=== PATIENT | male | born 1970 | race Two or more races ===

== ENCOUNTER 2018-10-16 18:43 | Inpatient (IN) | payer OTHER ==
[2018-10-16 19:22] VITALS: BMI 24.3
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
[2018-10-16] MEDS ORDERED: ONDANSETRON *ODT* 4 MG TABLET SL PRN (20:56)
[2018-10-16] MEDS ORDERED: DICYCLOMINE HCL 10 MG CAPSULE PO PRN (20:56)
[2018-10-16] MEDS ORDERED: MAGNESIUM HYDROX 2400MG/30ML ORAL SUSPENSION 30 ML CUP PO PRN (20:56)
[2018-10-16] MEDS ORDERED: MAGNESIUM CITRATE 300 ML BOTTLE PO PRN (20:56)
[2018-10-16] MEDS ORDERED: P-EPHED 60MG/TRIPROLIDI 2.5MG TABLET PO PRN (20:56)
[2018-10-16] MEDS ORDERED: chlordiazePOXIDE HCL 10 MG CAPSULE PO PRN (20:56)
[2018-10-16] MEDS ORDERED: MAG HYDROX/AL HYDROX/SIMETH 30 ML UNIT-DOSE CUP PO PRN (20:56)
[2018-10-16] MEDS ORDERED: MELATONIN 5 MG TABLETS PO PRN (20:56)
[2018-10-16] MEDS ORDERED: MENTHOL/PHENOL 1 EACH UD MM PRN (20:56)
[2018-10-16] MEDS ORDERED: NICOTINE POLACRILEX 4 MG GUM BUC PRN (20:56)
[2018-10-16] MEDS ORDERED: guaiFENesin 200 MG/10 ML 10 ML UNIT-DOSE CUPS PO PRN (20:56)
[2018-10-16] MEDS ORDERED: METHOCARBAMOL 500 MG TABLET PO PRN (20:56)
[2018-10-16] MEDS ORDERED: IBUPROFEN 400 MG TABLET (FP) PO PRN (20:56)
[2018-10-16] MEDS ORDERED: BISMUTH SUBSALICYLATE 524 MG/30 ML UD PO PRN (20:56)
[2018-10-16] MEDS ORDERED: ACETAMINOPHEN 325 MG TABLET (FP) PO PRN ×2 (20:56)
[2018-10-16] MEDS: hydrOXYzine PAMOATE 25 MG CAPSULE (FP) PO PRN (22:26)
[2018-10-16] MEDS: chlordiazePOXIDE HCL 25 MG CAPSULE PO SCH (22:26)
[2018-10-16] MEDS: THIAMINE HCL 100 MG TABLET (FP) PO SCH (22:54)
[2018-10-17] MEDS: chlordiazePOXIDE HCL 25 MG CAPSULE PO SCH ×2 (06:19→14:15)
[2018-10-17 10:01] LABS: ALBUMIN 3.2 g/dl (3.4-5.0); ALK PHOS 93 U/L (45-117); ANION GAP 9 MMOL/L (8-16); BILIRUBIN,TOTAL 0.3 mg/dL (0.2-1); BLOOD UREA NITROGEN 15 mg/dL (7-18); CALCIUM 8.5 mg/dL (8.5-10.1); CHLORIDE 104 mmol/L (98-107); CO2 27 mmol/L (21-32); GLUCOSE,RANDOM 111 mg/dL (74-106); POTASSIUM 3.5 mmol/L (3.5-5.1); SGOT/AST 16 U/L (15-37); SGPT/ALT 19 U/L (13-61); SODIUM 140 mmol/L (136-145); TOT PROT 6.6 g/dl (6.4-8.2)
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
[2018-10-17] MEDS: PRENATAL VITAMINS W/ FOLIC ACID TABLET (FP) PO SCH (10:29)
[2018-10-17] MEDS: NICOTINE 21 MG/24 HOURS TOPICAL PATCH TD SCH (10:30)
[2018-10-17 11:26] LABS: HEMATOCRIT 42.2 % (35.4-49); HEMOGLOBIN 14.1 GM/dL (11.7-16.9); MCH 31.6 pg (25.7-33.7); MCHC 33.3 g/dl (32.0-35.9); MEAN CELL VOLUME 94.8 fl (80-96); PLATELET COUNT 181 K/MM3 (134-434); RBC 4.46 M/mm3 (4.00-5.60); WHITE BLOOD COUNT 7.8 K/mm3 (4.0-10.0)
--- NOTE | 2018-10-17 12:29 | PN ---
S Progress Note Note: Patient is very uncooperative with the interview at this time. He answered "I don't know" for every question asked of him. Reconsult when patient is more cooperative
[2018-10-17 13:04] LABS: RPR REACTIVE 1:2 (NONREACTIVE)
--- NOTE | 2018-10-17 14:19 | PN ---
[facility] CIWA - CIWA Score Nausea/Vomitin-Mild Nausea/No Vomiting Muscle Tremors: 4-Moderate,w/Arms Extend Anxiety: 4-Mod. Anxious/Guarded Agitation: 4-Moderately Restless Paroxysmal Sweats: 3 Orientation: 0-Oriented Tacttile Disturbances: 0-None Auditory Disturbances: 0-None Visual Disturbances: 0-None Headache: 0-None Present CIWA-Ar Total Score: 16 [facility] Progress Note (SOAP) Subjective: Chills Objective: 10/17/18 14:17 Last Vital Signs Temp Pulse Resp BP Pulse Ox 97.9 F 80 18 125/75 10/17/18 09:19 10/17/18 09:19 10/17/18 09:19 10/17/18 09:19 Laboratory Tests 10/17/18 10/17/18 10/17/18 07:50 07:50 07:50 WBC 7.8 RBC 4.46 Hgb 14.1 Hct 42.2 MCV 94.8 MCH 31.6 MCHC 33.3 RDW 15.0 Plt Count 181 MPV 9.0 Sodium 140 Potassium 3.5 Chloride 104 Carbon Dioxide 27 Anion Gap 9 BUN 15 Creatinine 1.0 Creat Clearance w eGFR 80.44 Random Glucose 111 H Calcium 8.5 Total Bilirubin 0.3 AST 16 ALT 19 Alkaline Phosphatase 93 Total Protein 6.6 Albumin 3.2 L Valproic Acid RPR Titer Reactive 1:2 H 10/17/18 07:50 WBC RBC Hgb Hct MCV MCH MCHC RDW Plt Count MPV Sodium Potassium Chloride Carbon Dioxide Anion Gap BUN Creatinine Creat Clearance w eGFR Random Glucose Calcium Total Bilirubin AST ALT Alkaline Phosphatase Total Protein Albumin Valproic Acid < 3.0 L RPR Titer Labs reviewed: RPR 1:2; TPPA pending result Assessment: 10/17/18 14:18 Withdrawal symptoms Plan: Continue detox Encouraged PO water hydration RPR titer positive: follow up on TPPA result
[2018-10-17 14:44] LABS: TREPONEMA ANTIBODY REACTIVE (NONREACTIVE)
--- NOTE | 2018-10-17 18:04 | EKG ---
Test Reason : Blood Pressure : / mmHG Vent. Rate : 067 BPM Atrial Rate : 067 BPM P-R Int : 140 ms QRS Dur : 100 ms QT Int : 392 ms P-R-T Axes : 054 076 058 degrees QTc Int : 414 ms NORMAL SINUS RHYTHM VOLTAGE CRITERIA FOR LEFT VENTRICULAR HYPERTROPHY ABNORMAL ECG NO PREVIOUS ECGS AVAILABLE Confirmed by LUKE BECK MD ([id number]) on 10/17/2018 6:04:41 PM Referred By: Confirmed By:LUKE BECK MD
[2018-10-17] MEDS: hydrOXYzine PAMOATE 25 MG CAPSULE (FP) PO PRN (23:11)
[2018-10-17] MEDS: chlordiazePOXIDE 5 MG CAPSULE PO SCH (23:11)
[2018-10-17] MEDS: THIAMINE HCL 100 MG TABLET (FP) PO SCH (23:11)
[2018-10-18] MEDS: chlordiazePOXIDE 5 MG CAPSULE PO SCH ×3 (05:46→14:17)
[2018-10-18 10:12] LABS: URINE APPEARANCE CLEAR; URINE BILIRUBIN NEGATIVE (NEGATIVE); URINE COLOR YELLOW; URINE GLUCOSE (UA) NEGATIVE (NEGATIVE); URINE KETONE TRACE (NEGATIVE); URINE LEUK ESTERASE NEGATIVE (NEGATIVE); URINE NITRITE NEGATIVE (NEGATIVE); URINE PROTEIN NEGATIVE (NEGATIVE); URINE UROBILINOGEN 0.2 mg/dL (0.2-1.0)
[2018-10-18] MEDS: PRENATAL VITAMINS W/ FOLIC ACID TABLET (FP) PO SCH (10:19)
[2018-10-18] MEDS: NICOTINE 21 MG/24 HOURS TOPICAL PATCH TD SCH (10:19)
--- NOTE | 2018-10-18 14:26 | PN ---
[facility] CIWA - CIWA Score Nausea/Vomitin-No Nausea/No Vomiting Muscle Tremors: 2 Anxiety: 3 Agitation: 0-Normal Activity Paroxysmal Sweats: No Perspiration Orientation: 2-Disoriented Date<2 days Tacttile Disturbances: 2-Mild Itch/Numbness/Burn Auditory Disturbances: 0-None Visual Disturbances: 2-Mild Sensitivity Headache: 0-None Present CIWA-Ar Total Score: 11 S Progress Note (SOAP) Subjective: Body Aches, Anxious, Chills. Objective: PATIENT A & O X 2 (UNCERTAIN ABOUT CURRENT DAY / DATE). PATIENT OBSERVED AMBULATING ON UNIT. IN NO ACUTE DISTRESS. 10/18/18 14:26 Vital Signs Temperature 97.9 F 10/18/18 13:40 Pulse Rate 77 10/18/18 13:40 Respiratory Rate 18 10/18/18 13:40 Blood Pressure 126/66 10/18/18 13:40 O2 Sat by Pulse Oximetry (%) Laboratory Tests 10/17/18 10/17/18 10/17/18 07:50 07:50 07:50 WBC 7.8 RBC 4.46 Hgb 14.1 Hct 42.2 MCV 94.8 MCH 31.6 MCHC 33.3 RDW 15.0 Plt Count 181 MPV 9.0 Sodium 140 Potassium 3.5 Chloride 104 Carbon Dioxide 27 Anion Gap 9 BUN 15 Creatinine 1.0 Creat Clearance w eGFR 80.44 Random Glucose 111 H Calcium 8.5 Total Bilirubin 0.3 AST 16 ALT 19 Alkaline Phosphatase 93 Total Protein 6.6 Albumin 3.2 L Urine Color Urine Appearance Urine pH Ur Specific [place] Urine Protein Urine Glucose (UA) Urine Ketones Urine Blood Urine Nitrite Urine Bilirubin Urine Urobilinogen Ur Leukocyte Esterase Valproic Acid RPR Titer Reactive 1:2 H T.pallidum Ab (MHA) Reactive 10/17/18 10/18/18 07:50 07:50 WBC RBC Hgb Hct MCV MCH MCHC RDW Plt Count MPV Sodium Potassium Chloride Carbon Dioxide Anion Gap BUN Creatinine Creat Clearance w eGFR Random Glucose Calcium Total Bilirubin AST ALT Alkaline Phosphatase Total Protein Albumin Urine Color Yellow Urine Appearance Clear Urine pH 5.0 Ur Specific [place] 1.030 Urine Protein Negative Urine Glucose (UA) Negative Urine Ketones Trace H Urine Blood Negative Urine Nitrite Negative Urine Bilirubin Negative Urine Urobilinogen 0.2 Ur Leukocyte Esterase Negative Valproic Acid < 3.0 L RPR Titer T.pallidum Ab (MHA) LABS NOTED. RPR REACTIVE 1:2; MHATP: REACTIVE. PATIENT REPORTS THAT HE COMPLETED A FULL COURSE OF ANTIBIOTIC TREATMENT FOR SYPHILIS IN THE PAST. 10/18/18 15:47 Assessment: 10/18/18 14:26 WITHDRAWAL SYMPTOMS. 10/18/18 15:47 Plan: CONTINUE DETOX.
[2018-10-18] MEDS ORDERED: chlordiazePOXIDE HCL 10 MG CAPSULE PO PRN (21:00)
[2018-10-18] MEDS: THIAMINE HCL 100 MG TABLET (FP) PO SCH (22:08)
[2018-10-18] MEDS: chlordiazePOXIDE HCL 10 MG CAPSULE PO SCH (22:08)
[2018-10-19] MEDS: chlordiazePOXIDE HCL 10 MG CAPSULE PO SCH (07:00)
[2018-10-19 07:38] VITALS: TEMP 97.5
[2018-10-19 09:33] VITALS: BP 108/70; PULSE 74
--- NOTE | 2018-10-19 09:59 | PN ---
S Progress Note (SOAP) Subjective: alert,irritable,interrupted sleep Objective: 10/19/18 09:58 Vital Signs Temperature 97.5 F L 10/19/18 09:33 Pulse Rate 74 10/19/18 09:33 Respiratory Rate 18 10/19/18 09:33 Blood Pressure 108/70 10/19/18 09:33 O2 Sat by Pulse Oximetry (%) Assessment: 10/19/18 09:58 withdrawal symptom Plan: continue detox,discharge in am
[2018-10-19] MEDS: PRENATAL VITAMINS W/ FOLIC ACID TABLET (FP) PO SCH (10:09)
[2018-10-19] MEDS: NICOTINE 21 MG/24 HOURS TOPICAL PATCH TD SCH (10:09)
--- NOTE | 2018-10-19 10:21 | PN ---
S Progress Note Note: alert,no complaint at this time Vital Signs Temperature 97.5 F L 10/19/18 09:33 Pulse Rate 74 10/19/18 09:33 Respiratory Rate 18 10/19/18 09:33 Blood Pressure 108/70 10/19/18 09:33 O2 Sat by Pulse Oximetry (%) stable for discharge today follow up with [facility] arrangement
--- NOTE | 2018-10-19 10:24 | DS ---
[facility] Detox Discharge Summary Admission Date: 10/16/18 Discharge Date: 10/19/18 - History Present History: Alcohol Dependence, Cocaine Dependence Additional Comments: stable to be discharged today,to [facility] as arrangement Pertinent Past History: nicotine dependence - Physical Exam Results Vital Signs: Vital Signs Temperature 97.5 F L 10/19/18 09:33 Pulse Rate 74 10/19/18 09:33 Respiratory Rate 18 10/19/18 09:33 Blood Pressure 108/70 10/19/18 09:33 O2 Sat by Pulse Oximetry (%) Pertinent Admission Physical Exam Findings: withdrawal symptom - Treatment Hospital Course: Detox Protocol Followed, Detoxed Safely, Responded well, Discharged Condition Good, Rehab Referral Accepted Patient has Accepted a Rehab Referral to: [facility] - Medication Discharge Medications: Ambulatory Orders Divalproex [Depakote -] 500 mg PO DAILY 10/16/18 Olanzapine [Zyprexa] 10 mg PO DAILY 10/16/18 - Diagnosis (1) Alcohol dependence with uncomplicated withdrawal Current Visit: Yes Status: Acute (2) Cocaine abuse, uncomplicated Current Visit: Yes Status: Acute (3) Nicotine dependence Current Visit: Yes Status: Acute Qualifiers: Nicotine product type: cigarettes Substance use status: uncomplicated Qualified Code(s): F17.210 - Nicotine dependence, cigarettes, uncomplicated (4) Depression Current Visit: Yes Status: Acute - AMA Did Patient Leave Against Medical Advice: No
== END 2018-10-19 12:28 | disposition other institution (70) | DRG 774 ==
LOC: YASAS 18:43 → Y6N 20:23
PROVIDERS: ADMIT Surgery; ATTEND Surgery
PROC: HZ2ZZZZ Detoxification Services for Substance Abuse Treatment (ICD-10-PCS; principal; 2018-10-16)
DX: F10.230 Alcohol dependence with withdrawal, uncomplicated (principal); F14.20 Cocaine dependence, uncomplicated; F17.210 Nicotine dependence, cigarettes, uncomplicated; F19.24 Other psychoactive substance dependence with psychoactive substance-induced mood disorder; F31.9 Bipolar disorder, unspecified; F20.9 Schizophrenia, unspecified; R45.89 Other symptoms and signs involving emotional state; Z91.19 Patient's noncompliance with other medical treatment and regimen; Z91.5 Personal history of self-harm; Z86.19 Personal history of other infectious and parasitic diseases; Z59.0 Homelessness; R68.89 Other general symptoms and signs
CPT/HCPCS: 36415; 80053; 80164; 81003; 85027; 86593; 86780; 93005; 93010

== ENCOUNTER 2018-10-19 12:40 | Inpatient (IN) | payer OTHER ==
[2018-10-19] MEDS ORDERED: NICOTINE POLACRILEX 2 MG GUM BUC PRN (14:19)
[2018-10-19] MEDS ORDERED: MENTHOL/PHENOL 1 EACH UD MM PRN (14:19)
[2018-10-19] MEDS ORDERED: guaiFENesin 200 MG/10 ML 10 ML UNIT-DOSE CUPS PO PRN (14:19)
[2018-10-19] MEDS ORDERED: MAG HYDROX/AL HYDROX/SIMETH 30 ML UNIT-DOSE CUP PO PRN (14:19)
[2018-10-19] MEDS ORDERED: MAGNESIUM CITRATE 300 ML BOTTLE PO PRN (14:19)
[2018-10-19] MEDS ORDERED: hydrOXYzine PAMOATE 50 MG CAPSULE (FP) PO PRN (14:19)
[2018-10-19] MEDS ORDERED: ACETAMINOPHEN 325 MG TABLET (FP) PO PRN (14:19)
[2018-10-19] MEDS ORDERED: MAGNESIUM HYDROX 2400MG/30ML ORAL SUSPENSION 30 ML CUP PO PRN (14:19)
[2018-10-19] MEDS ORDERED: IBUPROFEN 400 MG TABLET (FP) PO PRN (14:19)
[2018-10-19] MEDS ORDERED: P-EPHED 60MG/TRIPROLIDI 2.5MG TABLET PO PRN (14:19)
[2018-10-19] MEDS ORDERED: LOPERAMIDE HCL 2 MG CAPSULE PO PRN (14:19)
--- NOTE | 2018-10-19 14:19 | HP ---
[facility] Rehab Assess/Revision - Admission History Admitted to Rehab from: [facility] Date of Admission to Rehab: 10/19/18 - Findings Detox History & Physical reviewed: Yes Concur with findings: Yes Comments/Additional Findings: for rehab as protocol Inpatient Rehab Admission - Rehab Decision to Admit Inpatient rehab admission?: Yes - Initial Determination Are CD services needed?: Yes Free of communicable disease: Yes Not in need of hospitalization: Yes - Rehab Admission Criteria Previous failed treatment: Yes Poor recovery environment: Yes Comorbidities: Yes Lacks judgement: No Patient is meeting Inpatient Rehab admission criteria:: Yes
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
[2018-10-19] MEDS: DIVALPROEX SODIUM 250 MG TABLET E.C. PO SCH (21:35)
[2018-10-19] MEDS: THIAMINE HCL 100 MG TABLET (FP) PO SCH (21:35)
[2018-10-19] MEDS: OLANZapine 5 MG TABLET PO SCH (21:36)
[2018-10-19] MEDS ORDERED: MELATONIN 5 MG TABLETS PO PRN (22:00)
[2018-10-20] MEDS: NICOTINE 21 MG/24 HOURS TOPICAL PATCH TD SCH (09:41)
[2018-10-20] MEDS: PRENATAL VITAMINS W/ FOLIC ACID TABLET (FP) PO SCH (09:41)
[2018-10-20] MEDS: DIVALPROEX SODIUM 250 MG TABLET E.C. PO SCH ×2 (09:41→21:40)
--- NOTE | 2018-10-20 09:43 | PN ---
S Progress Note Note: PT WAS ADMITTED HERE YESTERDAY FROM [address] [place] [address] BUT PREFERS TO CONTINUE REHAB ON [facility] PER NURSE [place]. PT WILL BE TRANSFERRED TO [facility] PER REQUEST. Vital Signs - 24 hr 10/19/18 10/20/18 10/20/18 14:27 00:30 03:30 Temperature 97.6 F Pulse Rate 81 Respiratory 18 18 18 Rate Blood Pressure 130/73 10/20/18 06:55 Temperature 97.4 F L Pulse Rate 66 Respiratory 18 Rate Blood Pressure 122/73 NAD TRANSFER TO [facility] TO CONTINUE REHAB.
[2018-10-20] MEDS: OLANZapine 5 MG TABLET PO SCH (21:40)
[2018-10-20] MEDS: THIAMINE HCL 100 MG TABLET (FP) PO SCH (21:40)
[2018-10-21] MEDS: PRENATAL VITAMINS W/ FOLIC ACID TABLET (FP) PO SCH (11:48)
[2018-10-21] MEDS: DIVALPROEX SODIUM 250 MG TABLET E.C. PO SCH ×2 (11:48→21:40)
[2018-10-21] MEDS: NICOTINE 21 MG/24 HOURS TOPICAL PATCH TD SCH (11:48)
[2018-10-21] MEDS: OLANZapine 5 MG TABLET PO SCH (21:40)
[2018-10-21] MEDS: THIAMINE HCL 100 MG TABLET (FP) PO SCH (21:40)
[2018-10-22] MEDS: NICOTINE 21 MG/24 HOURS TOPICAL PATCH TD SCH (10:20)
[2018-10-22] MEDS: PRENATAL VITAMINS W/ FOLIC ACID TABLET (FP) PO SCH (10:21)
[2018-10-22] MEDS: DIVALPROEX SODIUM 250 MG TABLET E.C. PO SCH ×2 (10:21→21:15)
[2018-10-22] MEDS: THIAMINE HCL 100 MG TABLET (FP) PO SCH (21:15)
[2018-10-22] MEDS: OLANZapine 5 MG TABLET PO SCH (21:15)
[2018-10-23] MEDS: NICOTINE 21 MG/24 HOURS TOPICAL PATCH TD SCH (10:14)
[2018-10-23] MEDS: PRENATAL VITAMINS W/ FOLIC ACID TABLET (FP) PO SCH (10:14)
[2018-10-23] MEDS: DIVALPROEX SODIUM 250 MG TABLET E.C. PO SCH ×2 (10:14→21:28)
[2018-10-23] MEDS: OLANZapine 5 MG TABLET PO SCH (21:28)
[2018-10-23] MEDS: THIAMINE HCL 100 MG TABLET (FP) PO SCH (21:28)
[2018-10-24] MEDS: NICOTINE 21 MG/24 HOURS TOPICAL PATCH TD SCH (10:10)
[2018-10-24] MEDS: DIVALPROEX SODIUM 250 MG TABLET E.C. PO SCH ×2 (10:10→21:15)
[2018-10-24] MEDS: PRENATAL VITAMINS W/ FOLIC ACID TABLET (FP) PO SCH (10:10)
[2018-10-24] MEDS: OLANZapine 5 MG TABLET PO SCH (21:15)
[2018-10-24] MEDS: THIAMINE HCL 100 MG TABLET (FP) PO SCH (21:15)
[2018-10-25] MEDS: DIVALPROEX SODIUM 250 MG TABLET E.C. PO SCH ×2 (09:55→21:56)
[2018-10-25] MEDS: PRENATAL VITAMINS W/ FOLIC ACID TABLET (FP) PO SCH (09:55)
[2018-10-25] MEDS: NICOTINE 21 MG/24 HOURS TOPICAL PATCH TD SCH (09:55)
[2018-10-25] MEDS: OLANZapine 5 MG TABLET PO SCH (21:56)
[2018-10-25] MEDS: THIAMINE HCL 100 MG TABLET (FP) PO SCH (21:56)
[2018-10-26] MEDS: NICOTINE 21 MG/24 HOURS TOPICAL PATCH TD SCH (10:08)
[2018-10-26] MEDS: DIVALPROEX SODIUM 250 MG TABLET E.C. PO SCH ×2 (10:08→21:39)
[2018-10-26] MEDS: PRENATAL VITAMINS W/ FOLIC ACID TABLET (FP) PO SCH (10:08)
[2018-10-26] MEDS: OLANZapine 5 MG TABLET PO SCH (21:39)
[2018-10-26] MEDS: THIAMINE HCL 100 MG TABLET (FP) PO SCH (21:39)
[2018-10-27] MEDS: PRENATAL VITAMINS W/ FOLIC ACID TABLET (FP) PO SCH (09:41)
[2018-10-27] MEDS: DIVALPROEX SODIUM 250 MG TABLET E.C. PO SCH ×2 (09:41→21:35)
[2018-10-27] MEDS: NICOTINE 21 MG/24 HOURS TOPICAL PATCH TD SCH (09:41)
[2018-10-27] MEDS: THIAMINE HCL 100 MG TABLET (FP) PO SCH (21:35)
[2018-10-27] MEDS: OLANZapine 5 MG TABLET PO SCH (21:35)
[2018-10-28] MEDS: PRENATAL VITAMINS W/ FOLIC ACID TABLET (FP) PO SCH (09:50)
[2018-10-28] MEDS: NICOTINE 21 MG/24 HOURS TOPICAL PATCH TD SCH (09:50)
[2018-10-28] MEDS: DIVALPROEX SODIUM 250 MG TABLET E.C. PO SCH ×2 (09:50→21:23)
[2018-10-28] MEDS: THIAMINE HCL 100 MG TABLET (FP) PO SCH (21:23)
[2018-10-28] MEDS: OLANZapine 5 MG TABLET PO SCH (21:23)
[2018-10-29] MEDS: DIVALPROEX SODIUM 250 MG TABLET E.C. PO SCH ×2 (10:13→21:46)
[2018-10-29] MEDS: NICOTINE 21 MG/24 HOURS TOPICAL PATCH TD SCH (10:13)
[2018-10-29] MEDS: PRENATAL VITAMINS W/ FOLIC ACID TABLET (FP) PO SCH (10:13)
[2018-10-29] MEDS: THIAMINE HCL 100 MG TABLET (FP) PO SCH (21:45)
[2018-10-29] MEDS: OLANZapine 5 MG TABLET PO SCH (21:46)
[2018-10-30] MEDS: DIVALPROEX SODIUM 250 MG TABLET E.C. PO SCH ×2 (09:38→21:24)
[2018-10-30] MEDS: PRENATAL VITAMINS W/ FOLIC ACID TABLET (FP) PO SCH (09:38)
[2018-10-30] MEDS: NICOTINE 21 MG/24 HOURS TOPICAL PATCH TD SCH (09:38)
[2018-10-30] MEDS: OLANZapine 5 MG TABLET PO SCH (21:24)
[2018-10-30] MEDS: THIAMINE HCL 100 MG TABLET (FP) PO SCH (21:24)
[2018-10-31] MEDS: DIVALPROEX SODIUM 250 MG TABLET E.C. PO SCH ×2 (10:07→21:31)
[2018-10-31] MEDS: NICOTINE 21 MG/24 HOURS TOPICAL PATCH TD SCH (10:07)
[2018-10-31] MEDS: PRENATAL VITAMINS W/ FOLIC ACID TABLET (FP) PO SCH (10:07)
[2018-10-31] MEDS: THIAMINE HCL 100 MG TABLET (FP) PO SCH (21:31)
[2018-10-31] MEDS: OLANZapine 5 MG TABLET PO SCH (21:31)
[2018-11-01] MEDS: NICOTINE 21 MG/24 HOURS TOPICAL PATCH TD SCH (10:35)
[2018-11-01] MEDS: DIVALPROEX SODIUM 250 MG TABLET E.C. PO SCH ×2 (10:35→21:25)
[2018-11-01] MEDS: PRENATAL VITAMINS W/ FOLIC ACID TABLET (FP) PO SCH (10:35)
[2018-11-01] MEDS: THIAMINE HCL 100 MG TABLET (FP) PO SCH (21:25)
[2018-11-01] MEDS: OLANZapine 5 MG TABLET PO SCH (21:25)
[2018-11-02] MEDS: PRENATAL VITAMINS W/ FOLIC ACID TABLET (FP) PO SCH (10:03)
[2018-11-02] MEDS: DIVALPROEX SODIUM 250 MG TABLET E.C. PO SCH ×2 (10:03→21:17)
[2018-11-02] MEDS: NICOTINE 21 MG/24 HOURS TOPICAL PATCH TD SCH (10:03)
[2018-11-02] MEDS: THIAMINE HCL 100 MG TABLET (FP) PO SCH (21:17)
[2018-11-02] MEDS: OLANZapine 5 MG TABLET PO SCH (21:17)
[2018-11-03] MEDS: DIVALPROEX SODIUM 250 MG TABLET E.C. PO SCH ×2 (09:58→21:30)
[2018-11-03] MEDS: NICOTINE 21 MG/24 HOURS TOPICAL PATCH TD SCH (09:58)
[2018-11-03] MEDS: PRENATAL VITAMINS W/ FOLIC ACID TABLET (FP) PO SCH (09:58)
[2018-11-03] MEDS: OLANZapine 5 MG TABLET PO SCH (21:30)
[2018-11-03] MEDS: THIAMINE HCL 100 MG TABLET (FP) PO SCH (21:30)
[2018-11-04] MEDS: DIVALPROEX SODIUM 250 MG TABLET E.C. PO SCH ×2 (10:14→21:17)
[2018-11-04] MEDS: PRENATAL VITAMINS W/ FOLIC ACID TABLET (FP) PO SCH (10:14)
[2018-11-04] MEDS: NICOTINE 21 MG/24 HOURS TOPICAL PATCH TD SCH (10:14)
[2018-11-04] MEDS: THIAMINE HCL 100 MG TABLET (FP) PO SCH (21:16)
[2018-11-04] MEDS: OLANZapine 5 MG TABLET PO SCH (21:16)
[2018-11-05] MEDS: DIVALPROEX SODIUM 250 MG TABLET E.C. PO SCH ×2 (09:50→21:35)
[2018-11-05] MEDS: PRENATAL VITAMINS W/ FOLIC ACID TABLET (FP) PO SCH (09:50)
[2018-11-05] MEDS: NICOTINE 21 MG/24 HOURS TOPICAL PATCH TD SCH (09:50)
[2018-11-05] MEDS: THIAMINE HCL 100 MG TABLET (FP) PO SCH (21:35)
[2018-11-05] MEDS: OLANZapine 5 MG TABLET PO SCH (21:35)
[2018-11-06] MEDS: PRENATAL VITAMINS W/ FOLIC ACID TABLET (FP) PO SCH (10:57)
[2018-11-06] MEDS: DIVALPROEX SODIUM 250 MG TABLET E.C. PO SCH ×2 (10:57→21:30)
[2018-11-06] MEDS: NICOTINE 21 MG/24 HOURS TOPICAL PATCH TD SCH (10:57)
[2018-11-06] MEDS: OLANZapine 5 MG TABLET PO SCH (21:30)
[2018-11-06] MEDS: THIAMINE HCL 100 MG TABLET (FP) PO SCH (21:30)
[2018-11-07] MEDS: DIVALPROEX SODIUM 250 MG TABLET E.C. PO SCH ×2 (10:22→21:30)
[2018-11-07] MEDS: PRENATAL VITAMINS W/ FOLIC ACID TABLET (FP) PO SCH (10:22)
[2018-11-07] MEDS: NICOTINE 21 MG/24 HOURS TOPICAL PATCH TD SCH (10:22)
[2018-11-07] MEDS: THIAMINE HCL 100 MG TABLET (FP) PO SCH (21:30)
[2018-11-07] MEDS: OLANZapine 5 MG TABLET PO SCH (21:30)
[2018-11-08] MEDS: NICOTINE 21 MG/24 HOURS TOPICAL PATCH TD SCH (09:51)
[2018-11-08] MEDS: PRENATAL VITAMINS W/ FOLIC ACID TABLET (FP) PO SCH (09:51)
[2018-11-08] MEDS: DIVALPROEX SODIUM 250 MG TABLET E.C. PO SCH ×2 (09:51→21:28)
[2018-11-08] MEDS: OLANZapine 5 MG TABLET PO SCH (21:28)
[2018-11-08] MEDS: THIAMINE HCL 100 MG TABLET (FP) PO SCH (21:28)
[2018-11-09] MEDS: DIVALPROEX SODIUM 250 MG TABLET E.C. PO SCH ×2 (09:57→21:39)
[2018-11-09] MEDS: PRENATAL VITAMINS W/ FOLIC ACID TABLET (FP) PO SCH (09:57)
[2018-11-09] MEDS: NICOTINE 21 MG/24 HOURS TOPICAL PATCH TD SCH (09:58)
--- NOTE | 2018-11-09 13:52 | PN ---
[facility] Progress Note (SOAP) Subjective: Client to be discharged tomorrow. Objective: No neurological deficits, CN2-12; Heart rates regular, Lungs clear. Abdomen soft , non-tender, non-distended. Medically stable. Vital Signs Period Temp Pulse Resp BP Sys/Real Pulse Ox Last 24 Hr 97.5 F 68 18-18 130/71 11/09/18 13:50 Assessment: Medically stable for discharge. Discharge dx: ETOH abuse, chronic Cocaine abuse, chronic PCP dependence, chronic HTN Homeless 11/09/18 13:53 Plan: Aftercare and medical care at [facility]. Client does not have any prescriptions that need to be transmitted.
--- NOTE | 2018-11-09 15:17 | PN ---
[facility] Progress Note Note: Patient is scheduled for discharged tomorrow. Scripts for 30 days supply of medications(Zyprexa 5 mg/hs, Depakote 250 mg/bid) will be electronically transmitted to [facility] at [address] [place] [address]
[2018-11-09] MEDS: THIAMINE HCL 100 MG TABLET (FP) PO SCH (21:39)
[2018-11-09] MEDS: OLANZapine 5 MG TABLET PO SCH (21:39)
[2018-11-10 07:00] VITALS: BP 118/79; PULSE 70; TEMP 97.7
[2018-11-10] MEDS: NICOTINE 21 MG/24 HOURS TOPICAL PATCH TD SCH (09:04)
[2018-11-10] MEDS: DIVALPROEX SODIUM 250 MG TABLET E.C. PO SCH (09:04)
[2018-11-10] MEDS: PRENATAL VITAMINS W/ FOLIC ACID TABLET (FP) PO SCH (09:04)
== END 2018-11-10 09:10 | disposition home or self-care (01) | DRG 772 ==
LOC: YASAS 12:40 → Y5N 12:41 → Y3W 10-20 10:40
PROVIDERS: ADMIT Neuromusculoskeletal Medicine & OMM; ATTEND Neuromusculoskeletal Medicine & OMM
PROC: HZ42ZZZ Group Counseling for Substance Abuse Treatment, Cognitive-Behavioral (ICD-10-PCS; principal; 2018-10-19)
DX: F10.20 Alcohol dependence, uncomplicated (principal); F14.10 Cocaine abuse, uncomplicated; F16.20 Hallucinogen dependence, uncomplicated; F17.210 Nicotine dependence, cigarettes, uncomplicated; F31.9 Bipolar disorder, unspecified; F19.24 Other psychoactive substance dependence with psychoactive substance-induced mood disorder; I10 Essential (primary) hypertension; Z91.19 Patient's noncompliance with other medical treatment and regimen; Z59.0 Homelessness
CPT/HCPCS: 36415; 71046-TC-FY; 80164

== ENCOUNTER 2023-03-19 16:34 | Inpatient (IN) | payer OTHER ==
[2023-03-19 18:26] VITALS: BMI 21.9
[2023-03-19] MEDS ORDERED: BENZOCAINE/MENTHOL (CHLORASEPTIC ) LOZENGE MM PRN (22:02)
[2023-03-19] MEDS ORDERED: ACETAMINOPHEN 325 MG TABLET (FP) PO PRN (22:02)
[2023-03-19] MEDS ORDERED: IBUPROFEN 600 MG TABLET (FP) PO PRN (22:02)
[2023-03-19] MEDS ORDERED: IBUPROFEN 400 MG TABLET (FP) PO PRN (22:02)
[2023-03-19] MEDS ORDERED: LOPERAMIDE HCL 2 MG CAPSULE PO PRN (22:02)
[2023-03-19] MEDS ORDERED: guaiFENesin 600 MG TABLET.ER (FP) PO PRN (22:02)
[2023-03-19] MEDS ORDERED: hydrOXYzine PAMOATE 25 MG CAPSULE (FP) PO PRN (22:02)
[2023-03-19] MEDS ORDERED: MAG HYDROX/AL HYDROX/SIMETH 30 ML UNIT-DOSE CUP PO PRN (22:02)
[2023-03-19] MEDS ORDERED: P-EPHED 60MG/TRIPROLIDI 2.5MG TABLET PO PRN (22:02)
[2023-03-19] MEDS ORDERED: NICOTINE POLACRILEX 2 MG GUM BUC PRN (22:02)
[2023-03-19] MEDS ORDERED: POLYETHYLENE GLYCOL (HEALTHYLAX) 3350 17 GM PACKET PO PRN (22:02)
[2023-03-19] MEDS ORDERED: COLLOIDAL OATMEAL 1 BAR EACH TP PRN (22:02)
[2023-03-19] MEDS ORDERED: BENZONATATE 200 MG CAPSULE PO PRN (22:02)
[2023-03-19] MEDS ORDERED: MAGNESIUM HYDROX 2400MG/30ML ORAL SUSPENSION 30 ML CUP PO PRN (22:02)
[2023-03-19] MEDS ORDERED: AMMONIUM LACTATE 12% LOTION 225 GM BOTTLE TP PRN (22:02)
[2023-03-20] MEDS: MELATONIN 5 MG TABLETS PO SCH ×2 (00:29→21:41)
[2023-03-20] MEDS ORDERED: PRENATAL VITAMINS W/ FOLIC ACID TABLET (FP) PO SCH (10:00)
[2023-03-20] MEDS ORDERED: TUBERCULIN PPD 5 TU/0.1ML SYRINGE (IN PATIENT USE ONLY) ID ONE (10:00)
[2023-03-20 11:40] LABS: POTASSIUM 3.9 mmol/L (3.5-5.1)
[2023-03-20 11:54] LABS: HEMATOCRIT 40.2 % (35.4-49); MCHC 32.2 g/dl (32.0-35.9); MEAN CELL VOLUME 93.1 fl (80-96); MEAN PLT VOLUME 9.6 fl (7.5-11.1); PLATELET COUNT 272 10^3/uL (134-434); RBC 4.32 M/mm3 (4.00-5.60); RDW 14.1 % (11.9-15.9); WHITE BLOOD COUNT 6.2 K/mm3 (4.0-10.0)
[2023-03-20 12:12] LABS: ALBUMIN 3.3 g/dl (3.4-5.0); BLOOD UREA NITROGEN 13.2 mg/dL (7-18)
[2023-03-20 12:15] LABS: CREATININE 0.9 mg/dL (0.55-1.3)
[2023-03-20] MEDS ORDERED: DIVALPROEX SODIUM 500 MG TABLET E.C. PO SCH (12:15)
[2023-03-20 12:16] LABS: BILIRUBIN,TOTAL 0.3 mg/dL (0.2-1); TOT PROT 6.6 g/dl (6.4-8.2)
[2023-03-20] MEDS ORDERED: NICOTINE POLACRILEX 4 MG GUM BUC PRN (12:19)
[2023-03-20 12:41] LABS: SYPHILIS W/ RPR CONF REACTIVE (NONREACTIVE)
[2023-03-20] MEDS: NICOTINE 21 MG/24 HOURS TOPICAL PATCH TD SCH (13:06)
[2023-03-20] MEDS: DIVALPROEX SODIUM 500 MG TABLET E.C. PO SCH (21:41)
[2023-03-20] MEDS: hydrOXYzine PAMOATE 25 MG CAPSULE (FP) PO SCH (21:41)
[2023-03-20] MEDS: THIAMINE HCL 100 MG TABLET (FP) PO SCH (21:41)
[2023-03-20] MEDS: AMANTADINE HCL 100 MG TABLET PO SCH (21:41)
[2023-03-21] MEDS: NICOTINE 21 MG/24 HOURS TOPICAL PATCH TD SCH (10:03)
[2023-03-21] MEDS: hydrOXYzine PAMOATE 25 MG CAPSULE (FP) PO SCH ×2 (10:04→21:24)
[2023-03-21] MEDS: DIVALPROEX SODIUM 500 MG TABLET E.C. PO SCH ×2 (10:05→21:24)
[2023-03-21] MEDS: AMANTADINE HCL 100 MG TABLET PO SCH ×2 (12:26→21:24)
[2023-03-21 19:50] LABS: URINE APPEARANCE CLEAR; URINE BILIRUBIN NEGATIVE (NEGATIVE); URINE COLOR YELLOW; URINE GLUCOSE (UA) NEGATIVE (NEGATIVE); URINE KETONE NEGATIVE (NEGATIVE); URINE LEUK ESTERASE NEGATIVE (NEGATIVE); URINE NITRITE NEGATIVE (NEGATIVE); URINE PROTEIN NEGATIVE (NEGATIVE); URINE UROBILINOGEN 0.2 mg/dL (0.2-1.0)
[2023-03-21] MEDS: MELATONIN 5 MG TABLETS PO SCH (21:21)
[2023-03-21] MEDS: THIAMINE HCL 100 MG TABLET (FP) PO SCH (21:21)
[2023-03-22] MEDS: AMANTADINE HCL 100 MG TABLET PO SCH ×2 (09:48→22:06)
[2023-03-22] MEDS: PRENATAL VITAMINS W/ FOLIC ACID TABLET (FP) PO PRN (09:48)
[2023-03-22] MEDS: NICOTINE 21 MG/24 HOURS TOPICAL PATCH TD SCH (09:48)
[2023-03-22] MEDS: hydrOXYzine PAMOATE 25 MG CAPSULE (FP) PO SCH ×2 (09:48→22:06)
[2023-03-22] MEDS: DIVALPROEX SODIUM 500 MG TABLET E.C. PO SCH ×2 (09:48→22:05)
[2023-03-22] MEDS: MELATONIN 5 MG TABLETS PO SCH (22:05)
[2023-03-22] MEDS: THIAMINE HCL 100 MG TABLET (FP) PO SCH (22:06)
[2023-03-23] MEDS: DIVALPROEX SODIUM 500 MG TABLET E.C. PO SCH ×2 (09:56→21:24)
[2023-03-23] MEDS: NICOTINE 21 MG/24 HOURS TOPICAL PATCH TD SCH (09:56)
[2023-03-23] MEDS: AMANTADINE HCL 100 MG TABLET PO SCH ×2 (09:57→21:24)
[2023-03-23] MEDS: hydrOXYzine PAMOATE 25 MG CAPSULE (FP) PO SCH ×2 (09:58→21:24)
[2023-03-23] MEDS: MELATONIN 5 MG TABLETS PO SCH (21:23)
[2023-03-23] MEDS: THIAMINE HCL 100 MG TABLET (FP) PO SCH (21:23)
[2023-03-23] MEDS: BACLOFEN 10 MG TABLET (FP) PO SCH (21:24)
[2023-03-24] MEDS: BACLOFEN 10 MG TABLET (FP) PO SCH ×3 (06:31→21:23)
[2023-03-24] MEDS: AMANTADINE HCL 100 MG TABLET PO SCH ×2 (09:58→21:23)
[2023-03-24] MEDS: DIVALPROEX SODIUM 500 MG TABLET E.C. PO SCH ×2 (09:58→21:23)
[2023-03-24] MEDS: hydrOXYzine PAMOATE 25 MG CAPSULE (FP) PO SCH ×2 (09:58→21:22)
[2023-03-24] MEDS: NICOTINE 21 MG/24 HOURS TOPICAL PATCH TD SCH (09:58)
[2023-03-24] MEDS: PRENATAL VITAMINS W/ FOLIC ACID TABLET (FP) PO PRN (09:59)
[2023-03-24] MEDS: MELATONIN 5 MG TABLETS PO SCH (21:22)
[2023-03-24] MEDS: THIAMINE HCL 100 MG TABLET (FP) PO SCH (21:22)
[2023-03-25] MEDS: BACLOFEN 10 MG TABLET (FP) PO SCH ×3 (06:11→21:32)
[2023-03-25] MEDS: DIVALPROEX SODIUM 500 MG TABLET E.C. PO SCH ×2 (09:46→21:31)
[2023-03-25] MEDS: hydrOXYzine PAMOATE 25 MG CAPSULE (FP) PO SCH ×2 (09:46→21:32)
[2023-03-25] MEDS: PRENATAL VITAMINS W/ FOLIC ACID TABLET (FP) PO PRN (09:47)
[2023-03-25] MEDS: AMANTADINE HCL 100 MG TABLET PO SCH ×2 (09:47→21:31)
[2023-03-25] MEDS: NICOTINE 21 MG/24 HOURS TOPICAL PATCH TD SCH (09:47)
[2023-03-25] MEDS: THIAMINE HCL 100 MG TABLET (FP) PO SCH (21:31)
[2023-03-25] MEDS: MELATONIN 5 MG TABLETS PO SCH (21:31)
[2023-03-26] MEDS: BACLOFEN 10 MG TABLET (FP) PO SCH ×3 (06:15→21:23)
[2023-03-26] MEDS: PRENATAL VITAMINS W/ FOLIC ACID TABLET (FP) PO PRN (09:57)
[2023-03-26] MEDS: NICOTINE 21 MG/24 HOURS TOPICAL PATCH TD SCH (09:57)
[2023-03-26] MEDS: DIVALPROEX SODIUM 500 MG TABLET E.C. PO SCH ×2 (09:57→21:23)
[2023-03-26] MEDS: hydrOXYzine PAMOATE 25 MG CAPSULE (FP) PO SCH ×2 (09:57→21:24)
[2023-03-26] MEDS: AMANTADINE HCL 100 MG TABLET PO SCH ×2 (10:09→21:25)
[2023-03-26] MEDS: THIAMINE HCL 100 MG TABLET (FP) PO SCH (21:22)
[2023-03-26] MEDS: MELATONIN 5 MG TABLETS PO SCH (21:22)
[2023-03-27] MEDS: BACLOFEN 10 MG TABLET (FP) PO SCH ×3 (06:23→21:27)
[2023-03-27] MEDS: AMANTADINE HCL 100 MG TABLET PO SCH ×2 (10:10→21:27)
[2023-03-27] MEDS: NICOTINE 21 MG/24 HOURS TOPICAL PATCH TD SCH (10:10)
[2023-03-27] MEDS: hydrOXYzine PAMOATE 25 MG CAPSULE (FP) PO SCH ×2 (10:11→21:27)
[2023-03-27] MEDS: DIVALPROEX SODIUM 500 MG TABLET E.C. PO SCH ×2 (10:11→21:26)
[2023-03-27] MEDS: PRENATAL VITAMINS W/ FOLIC ACID TABLET (FP) PO PRN (10:12)
[2023-03-27] MEDS: THIAMINE HCL 100 MG TABLET (FP) PO SCH (21:27)
[2023-03-27] MEDS: MELATONIN 5 MG TABLETS PO SCH (21:27)
[2023-03-28] MEDS: BACLOFEN 10 MG TABLET (FP) PO SCH ×3 (06:36→21:23)
[2023-03-28] MEDS: hydrOXYzine PAMOATE 25 MG CAPSULE (FP) PO SCH ×2 (10:01→21:25)
[2023-03-28] MEDS: DIVALPROEX SODIUM 500 MG TABLET E.C. PO SCH ×2 (10:01→21:23)
[2023-03-28] MEDS: PRENATAL VITAMINS W/ FOLIC ACID TABLET (FP) PO PRN (10:01)
[2023-03-28] MEDS: NICOTINE 21 MG/24 HOURS TOPICAL PATCH TD SCH (10:02)
[2023-03-28] MEDS: AMANTADINE HCL 100 MG TABLET PO SCH ×2 (10:02→21:23)
[2023-03-28] MEDS: MELATONIN 5 MG TABLETS PO SCH (21:23)
[2023-03-28] MEDS: THIAMINE HCL 100 MG TABLET (FP) PO SCH (21:26)
[2023-03-29] MEDS: BACLOFEN 10 MG TABLET (FP) PO SCH ×3 (06:42→21:27)
[2023-03-29] MEDS: NICOTINE 21 MG/24 HOURS TOPICAL PATCH TD SCH (10:35)
[2023-03-29] MEDS: DIVALPROEX SODIUM 500 MG TABLET E.C. PO SCH ×2 (10:35→21:27)
[2023-03-29] MEDS: hydrOXYzine PAMOATE 25 MG CAPSULE (FP) PO SCH ×2 (10:36→21:28)
[2023-03-29] MEDS: AMANTADINE HCL 100 MG TABLET PO SCH ×2 (10:36→21:28)
[2023-03-29] MEDS: THIAMINE HCL 100 MG TABLET (FP) PO SCH (21:28)
[2023-03-29] MEDS: MELATONIN 5 MG TABLETS PO SCH (21:28)
[2023-03-30] MEDS: BACLOFEN 10 MG TABLET (FP) PO SCH ×3 (06:26→21:30)
[2023-03-30] MEDS: NICOTINE 21 MG/24 HOURS TOPICAL PATCH TD SCH (09:52)
[2023-03-30] MEDS: DIVALPROEX SODIUM 500 MG TABLET E.C. PO SCH ×2 (09:52→21:30)
[2023-03-30] MEDS: PRENATAL VITAMINS W/ FOLIC ACID TABLET (FP) PO PRN (09:53)
[2023-03-30] MEDS: AMANTADINE HCL 100 MG TABLET PO SCH ×2 (09:53→21:30)
[2023-03-30] MEDS: hydrOXYzine PAMOATE 25 MG CAPSULE (FP) PO SCH ×2 (09:53→21:30)
[2023-03-30] MEDS: THIAMINE HCL 100 MG TABLET (FP) PO SCH (21:30)
[2023-03-30] MEDS: MELATONIN 5 MG TABLETS PO SCH (21:30)
[2023-03-31] MEDS: BACLOFEN 10 MG TABLET (FP) PO SCH ×3 (06:35→21:32)
[2023-03-31 07:31] VITALS: PULSE 77
[2023-03-31] MEDS: DIVALPROEX SODIUM 500 MG TABLET E.C. PO SCH ×2 (10:12→21:32)
[2023-03-31] MEDS: NICOTINE 21 MG/24 HOURS TOPICAL PATCH TD SCH (10:13)
[2023-03-31] MEDS: hydrOXYzine PAMOATE 25 MG CAPSULE (FP) PO SCH ×2 (10:14→21:32)
[2023-03-31] MEDS: AMANTADINE HCL 100 MG TABLET PO SCH ×2 (10:14→21:32)
[2023-03-31] MEDS: THIAMINE HCL 100 MG TABLET (FP) PO SCH (21:32)
[2023-03-31] MEDS: MELATONIN 5 MG TABLETS PO SCH (21:32)
[2023-04-01 06:46] VITALS: BP 133/80; RESP 16; TEMP 97.8
[2023-04-01] MEDS: BACLOFEN 10 MG TABLET (FP) PO SCH (06:49)
[2023-04-01] MEDS: hydrOXYzine PAMOATE 25 MG CAPSULE (FP) PO SCH (09:08)
[2023-04-01] MEDS: DIVALPROEX SODIUM 500 MG TABLET E.C. PO SCH (09:08)
[2023-04-01] MEDS: NICOTINE 21 MG/24 HOURS TOPICAL PATCH TD SCH (09:09)
[2023-04-01] MEDS: AMANTADINE HCL 100 MG TABLET PO SCH (09:09)
== END 2023-04-01 09:17 | disposition home or self-care (01) | DRG 772 ==
LOC: YASAS 16:34 → Y3E 22:42
PROVIDERS: ADMIT Allergy & Immunology; ATTEND Psychiatry & Neurology Pain Medicine
PROC: HZ42ZZZ Group Counseling for Substance Abuse Treatment, Cognitive-Behavioral (ICD-10-PCS; principal; 2023-03-19)
DX: F14.20 Cocaine dependence, uncomplicated (principal); F15.20 Other stimulant dependence, uncomplicated; F17.210 Nicotine dependence, cigarettes, uncomplicated; F20.9 Schizophrenia, unspecified; F31.9 Bipolar disorder, unspecified; F19.24 Other psychoactive substance dependence with psychoactive substance-induced mood disorder; Z62.810 Personal history of physical and sexual abuse in childhood; Z91.148 Patient's other noncompliance with medication regimen for other reason; Z59.00 Homelessness unspecified
CPT/HCPCS: 36415; 80053; 80164; 81003; 85027; 86480; 86593; 86780; 86803; 87522; 87635; J0475

== ENCOUNTER 2024-01-23 12:03 | Inpatient (IN) | payer OTHER ==
[2024-01-23 12:41] VITALS: BMI 22.6
[2024-01-23] MEDS ORDERED: BENZOCAINE/MENTHOL (CHLORASEPTIC ) LOZENGE MM PRN (13:32)
[2024-01-23] MEDS ORDERED: guaiFENesin 600 MG TABLET.ER (FP) PO PRN (13:32)
[2024-01-23] MEDS ORDERED: MAG HYDROX/AL HYDROX/SIMETH 30 ML UNIT-DOSE CUP PO PRN (13:32)
[2024-01-23] MEDS ORDERED: NICOTINE POLACRILEX 4 MG LOZENGE BC PRN (13:32)
[2024-01-23] MEDS ORDERED: ACETAMINOPHEN 325 MG TABLET (FP) PO PRN (13:32)
[2024-01-23] MEDS ORDERED: NALOXONE (NARCAN) HCL 4 MG/0.1 ML SPRAY NS PRN (13:32)
[2024-01-23] MEDS ORDERED: MAGNESIUM HYDROX 2400MG/30ML ORAL SUSPENSION 30 ML CUP PO PRN (13:32)
[2024-01-23] MEDS ORDERED: IBUPROFEN 600 MG TABLET (FP) PO PRN (13:32)
[2024-01-23] MEDS ORDERED: POLYETHYLENE GLYCOL (HEALTHYLAX) 3350 17 GM PACKET PO PRN (13:32)
[2024-01-23] MEDS ORDERED: BENZONATATE 200 MG CAPSULE PO PRN (13:32)
[2024-01-23] MEDS ORDERED: LOPERAMIDE HCL 2 MG CAPSULE PO PRN (13:32)
[2024-01-23] MEDS ORDERED: hydrOXYzine PAMOATE 25 MG CAPSULE (FP) PO PRN (13:32)
[2024-01-23] MEDS ORDERED: IBUPROFEN 400 MG TABLET (FP) PO PRN (13:32)
[2024-01-23] MEDS ORDERED: NALOXONE HCL 0.4 MG/ML VIAL IM PRN (13:32)
[2024-01-23] MEDS ORDERED: AMMONIUM LACTATE 12% LOTION 225 GM BOTTLE TP PRN (13:32)
[2024-01-23] MEDS: NICOTINE 21 MG/24 HOURS TOPICAL PATCH TD SCH (15:06)
[2024-01-23] MEDS ORDERED: TUBERCULIN PPD 5 TU/0.1ML VIAL ID ONE (18:27)
[2024-01-23] MEDS: TUBERCULIN PPD 5 TU/0.1ML SYRINGE (IN PATIENT USE ONLY) ID ONE (18:41)
[2024-01-23] MEDS: THIAMINE 100 MG TABLET PO SCH (23:17)
[2024-01-23] MEDS: MELATONIN 5 MG TABLETS PO SCH (23:17)
[2024-01-24] MEDS: PRENATAL VITAMINS W/ FOLIC ACID TABLET (FP) PO SCH (09:55)
[2024-01-24 10:56] LABS: HEMATOCRIT 39.5 % (35.4-49); HEMOGLOBIN 13.2 GM/dL (11.7-16.9); MCHC 33.5 g/dl (32.0-35.9); MEAN CELL VOLUME 89.6 fl (80-96); MEAN PLT VOLUME 8.7 fl (7.5-11.1); PLATELET COUNT 271 10^3/uL (134-434); RBC 4.41 M/mm3 (4.00-5.60); RDW 17.1 % (11.9-15.9); WHITE BLOOD COUNT 5.3 K/mm3 (4.0-10.0)
[2024-01-24 11:03] LABS: POTASSIUM 4.2 mmol/L (3.5-5.1)
[2024-01-24 11:04] LABS: CALCIUM 8.5 mg/dL (8.5-10.1)
[2024-01-24 11:06] LABS: BLOOD UREA NITROGEN 19.1 mg/dL (7-18)
[2024-01-24 11:09] LABS: CREATININE 0.9 mg/dL (0.55-1.3)
[2024-01-24 11:11] LABS: BILIRUBIN,TOTAL 0.5 mg/dL (0.2-1)
[2024-01-24 12:53] LABS: SYPHILIS W/ RPR CONF REACTIVE (NONREACTIVE)
[2024-01-25] MEDS: BACLOFEN 10 MG TABLET (FP) PO SCH (10:21)
[2024-01-25] MEDS: DIVALPROEX SODIUM 500 MG TABLET E.C. PO SCH (10:21)
[2024-01-25 17:08] LABS: URINE APPEARANCE CLEAR; URINE BILIRUBIN NEGATIVE (NEGATIVE); URINE COLOR YELLOW; URINE GLUCOSE (UA) NEGATIVE (NEGATIVE); URINE KETONE NEGATIVE (NEGATIVE); URINE LEUK ESTERASE NEGATIVE (NEGATIVE); URINE NITRITE NEGATIVE (NEGATIVE); URINE PROTEIN NEGATIVE (NEGATIVE); URINE UROBILINOGEN 0.2 mg/dL (0.2-1.0)
[2024-01-26] MEDS: AMANTADINE HCL 100 MG TABLET PO SCH (21:34)
[2024-01-26] MEDS: DIVALPROEX SODIUM 500 MG TABLET E.C. PO SCH (21:34)
[2024-01-28] MEDS: AMANTADINE HCL 100 MG TABLET PO ONE (13:47)
[2024-01-28] MEDS: DIVALPROEX SODIUM 500 MG TABLET E.C. PO ONE (13:47)
[2024-02-05 07:22] VITALS: BP 113/76; PULSE 76; RESP 17; TEMP 97.7
== END 2024-02-05 09:15 | disposition home or self-care (01) | DRG 772 ==
LOC: YASAS 12:03 → Y3E 13:50
PROVIDERS: ADMIT Allergy & Immunology; ATTEND Psychiatry & Neurology Pain Medicine
PROC: HZ42ZZZ Group Counseling for Substance Abuse Treatment, Cognitive-Behavioral (ICD-10-PCS; principal; 2024-01-23)
DX: F14.20 Cocaine dependence, uncomplicated (principal); F17.210 Nicotine dependence, cigarettes, uncomplicated; F31.9 Bipolar disorder, unspecified; F20.9 Schizophrenia, unspecified; F19.24 Other psychoactive substance dependence with psychoactive substance-induced mood disorder; I25.2 Old myocardial infarction; Z62.810 Personal history of physical and sexual abuse in childhood; Z63.8 Other specified problems related to primary support group; Z86.19 Personal history of other infectious and parasitic diseases; Z86.11 Personal history of tuberculosis; Z91.148 Patient's other noncompliance with medication regimen for other reason
CPT/HCPCS: 36415; 80053; 80164; 80305; 80307; 81003; 85027; 86593; 86780; 86803; 87522; 87811; 93005; 93010; J0475